=== PATIENT | male | born 1960 | race Caucasian/White ===

== ENCOUNTER 2023-04-30 09:36 | Emergency (ER) | payer OTHER ==
[2023-04-30 10:07] VITALS: BMI 28.8
[2023-04-30 14:01] VITALS: BP 154/74; PULSE 99; RESP 20; TEMP 97.9
== END 2023-04-30 13:30 ==
LOC: JER 09:36
DX: L29.9 Pruritus, unspecified (principal); R21 Rash and other nonspecific skin eruption; B35.4 Tinea corporis; B35.6 Tinea cruris
CPT/HCPCS: 99282-25

== ENCOUNTER 2023-07-16 08:18 | Inpatient (IN) | payer OTHER ==
[2023-07-16 08:40] VITALS: BMI 27.3
[2023-07-16 10:41] LABS: BASO % 0.9 % (0-2.0); EOS % 4.2 % (0-4.5); HEMATOCRIT 29.5 % (35.4-49); LYMPH % 18.3 % (8-40); MCH 31.2 pg (25.7-33.7); MCHC 33.7 g/dl (32.0-35.9); MEAN CELL VOLUME 92.6 fl (80-96); MEAN PLT VOLUME 7.3 fl (7.5-11.1); MONO % 5.8 % (3.8-10.2); NEUT % 70.8 % (42.8-82.8); PLATELET COUNT 128 10^3/uL (134-434); RBC 3.19 M/mm3 (4.00-5.60); RDW 15.7 % (11.9-15.9); WHITE BLOOD COUNT 7.2 K/mm3 (4.0-10.0)
[2023-07-16 10:53] LABS: CHLORIDE 107 mmol/L (98-107); SODIUM 133 mmol/L (136-145)
[2023-07-16 10:55] LABS: CALCIUM 8.8 mg/dL (8.5-10.1)
[2023-07-16 10:56] LABS: ALBUMIN 3.7 g/dl (3.4-5.0); CO2 16 mmol/L (21-32); GLUCOSE,RANDOM 108 mg/dL (74-106)
[2023-07-16 10:59] LABS: SGOT/AST 51 U/L (15-37)
[2023-07-16 11:00] LABS: BILIRUBIN,TOTAL 0.3 mg/dL (0.2-1); TOT PROT 8.2 g/dl (6.4-8.2)
[2023-07-16 11:02] LABS: ALK PHOS 87 U/L (45-117)
[2023-07-16 11:05] LABS: ANION GAP 11 mmol/L (4-13); BLOOD UREA NITROGEN 166.2 mg/dL (7-18); CREATININE 16.5 mg/dL (0.55-1.3); POTASSIUM 9.9 mmol/L (3.5-5.1); SGPT/ALT 12 U/L (13-61)
[2023-07-16] MEDS ORDERED: SODIUM CHLORIDE 250 ML IV PRN ×2 (12:59→19:41)
[2023-07-16] MEDS ORDERED: SEVELAMER CARBONATE 800 MG TAB (FP) ONE (18:42)
[2023-07-16] MEDS: SEVELAMER CARBONATE 800 MG TAB (FP) PO SCH (18:44)
[2023-07-16] MEDS ORDERED: ACETAMINOPHEN 325 MG TABLET (FP) PO PRN (19:00)
[2023-07-16] MEDS ORDERED: levETIRAcetam 500 MG TABLET (FP) PO SCH (22:00)
[2023-07-16] MEDS ORDERED: HEPARIN NA (PORCINE) 5,000 UNITS/ML 1ML VIAL ONE (22:15)
[2023-07-16] MEDS ORDERED: CARVEDILOL 25 MG TABLET (FP) ONE (22:15)
[2023-07-16] MEDS ORDERED: hydrALAZINE HCL 50 MG TABLET (FP) ONE (22:15)
[2023-07-16] MEDS: CARVEDILOL 25 MG TABLET (FP) PO SCH (22:38)
[2023-07-16] MEDS: hydrALAZINE HCL 25 MG TABLET (FP) PO SCH (22:38)
[2023-07-16] MEDS: HEPARIN NA (PORCINE) 5,000 UNITS/ML 1ML VIAL SQ SCH (22:38)
[2023-07-17] MEDS ORDERED: ACETAMINOPHEN 1000 MG/100 ML BAG IVPB ONE (01:20)
[2023-07-17] MEDS ORDERED: ACETAMINOPHEN INJECTION 100 ML IVPB ONE (01:22)
[2023-07-17] MEDS ORDERED: oxyCODONE HCL 5 MG TABLET PO ONE (05:55)
[2023-07-17] MEDS ORDERED: hydrALAZINE HCL 50 MG TABLET (FP) ONE (06:07)
[2023-07-17] MEDS ORDERED: HEPARIN NA (PORCINE) 5,000 UNITS/ML 1ML VIAL ONE (06:08)
[2023-07-17] MEDS: hydrALAZINE HCL 25 MG TABLET (FP) PO SCH ×3 (06:14→21:00)
[2023-07-17] MEDS: HEPARIN NA (PORCINE) 5,000 UNITS/ML 1ML VIAL SQ SCH ×3 (06:14→21:00)
[2023-07-17] MEDS ORDERED: TAMSULOSIN HCL 0.4 MG CAP PO SCH (08:30)
[2023-07-17] MEDS ORDERED: TAMSULOSIN HCL 0.4 MG CAP ONE (08:40)
[2023-07-17] MEDS: SEVELAMER CARBONATE 800 MG TAB (FP) PO SCH ×3 (08:58→17:03)
[2023-07-17] MEDS: CARVEDILOL 25 MG TABLET (FP) PO SCH ×2 (09:50→21:00)
[2023-07-17] MEDS ORDERED: ISOSORBIDE MONONITRATE 60 MG TAB.SR.24H (FP) PO SCH (10:00)
[2023-07-17] MEDS ORDERED: amLODIPine BESYLATE 5 MG TABLET (FP) PO SCH ×2 (10:00)
[2023-07-17] MEDS ORDERED: CITALOPRAM HYDROBROMIDE 20 MG TABLET PO SCH (10:00)
[2023-07-17] MEDS ORDERED: ASPIRIN COATED 81 MG TABLET.EC PO SCH (10:00)
[2023-07-17] MEDS ORDERED: FAMOTIDINE 20 MG TABLET PO SCH (10:00)
[2023-07-17] MEDS ORDERED: ISOSORBIDE MONONITRATE 30 MG TAB.SR.24H (FP) PO SCH (10:17)
[2023-07-17 12:38] LABS: BASO % 0.7 % (0-2.0); EOS % 4.5 % (0-4.5); HEMATOCRIT 25.7 % (35.4-49); HEMOGLOBIN 8.5 GM/dL (11.7-16.9); LYMPH % 18.6 % (8-40); MCH 30.3 pg (25.7-33.7); MCHC 33.1 g/dl (32.0-35.9); MEAN CELL VOLUME 91.6 fl (80-96); MEAN PLT VOLUME 8.2 fl (7.5-11.1); MONO % 11.1 % (3.8-10.2); NEUT % 65.1 % (42.8-82.8); PLATELET COUNT 110 10^3/uL (134-434); RBC 2.81 M/mm3 (4.00-5.60); RDW 15.3 % (11.9-15.9); WHITE BLOOD COUNT 5.8 K/mm3 (4.0-10.0)
[2023-07-17 12:42] LABS: CHLORIDE 109 mmol/L (98-107); POTASSIUM 3.8 mmol/L (3.5-5.1); SODIUM 146 mmol/L (136-145)
[2023-07-17 12:43] LABS: CALCIUM 8.2 mg/dL (8.5-10.1)
[2023-07-17 12:44] LABS: ANION GAP 9 mmol/L (4-13); CO2 28 mmol/L (21-32)
[2023-07-17 12:46] LABS: GLUCOSE,RANDOM 119 mg/dL (74-106)
[2023-07-17 13:24] LABS: BLOOD UREA NITROGEN 77.3 mg/dL (7-18); CREATININE 9.8 mg/dL (0.55-1.3)
[2023-07-17 16:55] VITALS: RESP 18
[2023-07-17] MEDS ORDERED: levETIRAcetam 250 MG TABLET PO ONE (20:35)
[2023-07-17 21:44] VITALS: BP 160/70; PULSE 72; TEMP 98.9
== END 2023-07-17 21:48 | DRG 425 ==
LOC: JER 08:18 → JERBED 12:10 → OBSVTOIN 14:37 → J2W 07-17 08:55
PROVIDERS: ADMIT Internal Medicine; ATTEND Internal Medicine
PROC: 5A1D70Z Performance of Urinary Filtration, Intermittent, Less than 6 Hours Per Day (ICD-10-PCS; principal; 2023-07-16)
DX: E87.70 Fluid overload, unspecified (principal); I69.351 Hemiplegia and hemiparesis following cerebral infarction affecting right dominant side; I13.2 Hypertensive heart and chronic kidney disease with heart failure and with stage 5 chronic kidney disease, or end stage renal disease; E11.22 Type 2 diabetes mellitus with diabetic chronic kidney disease; N18.6 End stage renal disease; I50.9 Heart failure, unspecified; Z99.2 Dependence on renal dialysis; D64.9 Anemia, unspecified; R56.9 Unspecified convulsions; I21.A1 Myocardial infarction type 2; E87.5 Hyperkalemia
CPT/HCPCS: 0241U-QW; 36415; 71045-TC-FY; 80048; 80053; 82550; 82553; 82728; 83036; 83540; 83550; 83880; 84466; 84484; 85025; 86704; 86803; 87340; 87517; 87522; 93005; 93010; 93306-TC; 99285-25; G0378; J1644

== ENCOUNTER 2023-11-11 08:53 | Inpatient (IN) | payer OTHER ==
[2023-11-11 09:13] VITALS: BMI 30.4
[2023-11-11 10:20] LABS: BASO % 0.7 % (0-2.0); EOS % 1.3 % (0-4.5); HEMOGLOBIN 8.6 GM/dL (11.7-16.9); LYMPH % 10.1 % (8-40); MCH 30.2 pg (25.7-33.7); MCHC 33.2 g/dl (32.0-35.9); MEAN CELL VOLUME 91.1 fl (80-96); MEAN PLT VOLUME 8.4 fl (7.5-11.1); MONO % 13.8 % (3.8-10.2); NEUT % 74.1 % (42.8-82.8); PLATELET COUNT 135 10^3/uL (134-434); RBC 2.86 M/mm3 (4.00-5.60); RDW 15.6 % (11.9-15.9); WHITE BLOOD COUNT 10.3 K/mm3 (4.0-10.0)
[2023-11-11 10:24] LABS: INR 1.12 (0.83-1.09)
[2023-11-11 10:39] LABS: CHLORIDE 99 mmol/L (98-107); POTASSIUM 4.6 mmol/L (3.5-5.1); SODIUM 137 mmol/L (136-145)
[2023-11-11 10:44] LABS: CALCIUM 9.9 mg/dL (8.5-10.1); GLUCOSE,RANDOM 92 mg/dL (74-106)
[2023-11-11 10:45] LABS: ALBUMIN 2.7 g/dl (3.4-5.0); ANION GAP 14 mmol/L (4-13); CO2 23 mmol/L (21-32)
[2023-11-11 10:47] LABS: SGOT/AST 8 U/L (15-37)
[2023-11-11 10:48] LABS: SGPT/ALT 8 U/L (13-61); TOT PROT 6.8 g/dl (6.4-8.2)
[2023-11-11 10:49] LABS: ALK PHOS 58 U/L (45-117)
[2023-11-11 10:50] LABS: BLOOD UREA NITROGEN 104.7 mg/dL (7-18); CREATININE 11.1 mg/dL (0.55-1.3)
[2023-11-11] MEDS ORDERED: LACTULOSE 20 GM/30 ML UDC (FOR ORAL USE ONLY) ONE (12:00)
[2023-11-11] MEDS: LACTULOSE 20 GM/30 ML UDC (FOR ORAL USE ONLY) PO ONE (12:19)
[2023-11-11] MEDS ORDERED: SODIUM CHLORIDE 250 ML IV PRN (14:48)
[2023-11-11] MEDS: EPOETIN ALFA-EPBX 4,000 UNIT/ML VIAL IVPUSH ONE (18:41)
[2023-11-12] MEDS: VANCOMYCIN/WATER FOR INJ (PEG) 1,000 MG/200 ML BAG IVPB ONE (07:18)
[2023-11-12] MEDS ORDERED: SODIUM CHLORIDE 250 ML IV PRN (09:15)
[2023-11-12 15:07] LABS: BASO % 0.7 % (0-2.0); EOS % 1.5 % (0-4.5); HEMATOCRIT 25.4 % (35.4-49); HEMOGLOBIN 8.2 GM/dL (11.7-16.9); LYMPH % 11.7 % (8-40); MCH 29.8 pg (25.7-33.7); MCHC 32.3 g/dl (32.0-35.9); MEAN CELL VOLUME 92.1 fl (80-96); MEAN PLT VOLUME 8.1 fl (7.5-11.1); MONO % 13.3 % (3.8-10.2); NEUT % 72.8 % (42.8-82.8); PLATELET COUNT 175 10^3/uL (134-434); RBC 2.75 M/mm3 (4.00-5.60); WHITE BLOOD COUNT 10.1 K/mm3 (4.0-10.0)
[2023-11-12 15:23] LABS: CHLORIDE 103 mmol/L (98-107); SODIUM 143 mmol/L (136-145)
[2023-11-12 15:26] LABS: ALBUMIN 2.5 g/dl (3.4-5.0); ANION GAP 13 mmol/L (4-13); CALCIUM 8.9 mg/dL (8.5-10.1); CO2 27 mmol/L (21-32); GLUCOSE,RANDOM 79 mg/dL (74-106); MAGNESIUM 2.7 mg/dL (1.8-2.4)
[2023-11-12 15:29] LABS: SGOT/AST 6 U/L (15-37); SGPT/ALT 9 U/L (13-61)
[2023-11-12 15:30] LABS: BILIRUBIN,TOTAL 0.7 mg/dL (0.2-1); TOT PROT 6.9 g/dl (6.4-8.2)
[2023-11-12 15:31] LABS: ALK PHOS 56 U/L (45-117)
[2023-11-12 15:41] LABS: BLOOD UREA NITROGEN 58.6 mg/dL (7-18); CREATININE 7.5 mg/dL (0.55-1.3)
[2023-11-12] MEDS: EPOETIN ALFA-EPBX 4,000 UNIT/ML VIAL IVPUSH ONE (16:48)
[2023-11-12] MEDS ORDERED: DOCUSATE SODIUM 100 MG CAPSULE (FP) PO PRN (18:51)
[2023-11-12] MEDS ORDERED: MELATONIN 5 MG TABLETS PO PRN (18:51)
[2023-11-12] MEDS ORDERED: SODIUM PHOSPHATE/NA BIPHOS 133 ML ENEMA RC ONE (18:51)
[2023-11-12] MEDS: levETIRAcetam 250 MG TABLET PO SCH (21:31)
[2023-11-12] MEDS: ATORVASTATIN CA 20 MG TABLET (FP) PO SCH (21:32)
[2023-11-12] MEDS: CARVEDILOL 25 MG TABLET (FP) PO SCH (21:32)
[2023-11-12] MEDS: AMMONIUM LACTATE 12% LOTION 225 GM BOTTLE TP PRN (21:32)
[2023-11-12] MEDS: hydrALAZINE HCL 50 MG TABLET (FP) PO SCH (21:32)
[2023-11-12] MEDS: CLOTRIMAZOLE 1% CREAM TP SCH (21:33)
[2023-11-12] MEDS: SENNOSIDES 8.8 MG/5 ML SYRUP PO SCH (21:33)
[2023-11-13] MEDS: ACETAMINOPHEN 325 MG TABLET (FP) PO PRN (02:20)
[2023-11-13] MEDS: SEVELAMER CARBONATE 800 MG TAB (FP) PO SCH (08:25)
[2023-11-13] MEDS: TAMSULOSIN HCL 0.4 MG CAP PO SCH (08:25)
[2023-11-13] MEDS: CITALOPRAM HYDROBROMIDE 20 MG TABLET PO SCH (09:26)
[2023-11-13] MEDS: amLODIPine BESYLATE 10 MG TABLET (FP) PO SCH (09:26)
[2023-11-13] MEDS: ISOSORBIDE MONONITRATE 30 MG TAB.SR.24H (FP) PO SCH (09:26)
[2023-11-13] MEDS: FAMOTIDINE 10 MG TABLET PO SCH (09:26)
[2023-11-13] MEDS: ASPIRIN COATED 81 MG TABLET.EC PO SCH (09:26)
[2023-11-13] MEDS: VANCOMYCIN/WATER FOR INJ (PEG) 1,000 MG/200 ML BAG IVPB ONE (11:53)
[2023-11-13] MEDS ORDERED: SODIUM CHLORIDE 250 ML IV PRN (15:28)
[2023-11-14] MEDS: DAPTOMYCIN 800 MG in SODIUM CHLORIDE 100 ML IVPB ONE (13:26)
[2023-11-14] MEDS ORDERED: EPOETIN ALFA-EPBX 4,000 UNIT/ML VIAL SQ ONE (15:28)
[2023-11-14] MEDS: hydrOXYzine PAMOATE 25 MG CAPSULE (FP) PO PRN (19:57)
[2023-11-15 10:04] LABS: HEMATOCRIT 20.2 % (35.4-49); MCH 29.7 pg (25.7-33.7); MCHC 32.6 g/dl (32.0-35.9); MEAN CELL VOLUME 91.1 fl (80-96); MEAN PLT VOLUME 7.5 fl (7.5-11.1); PLATELET COUNT 313 10^3/uL (134-434); RBC 2.22 M/mm3 (4.00-5.60); RDW 15.7 % (11.9-15.9); WHITE BLOOD COUNT 12.2 K/mm3 (4.0-10.0)
[2023-11-15 10:12] LABS: HEMOGLOBIN 6.6 GM/dL (11.7-16.9)
[2023-11-15 10:28] LABS: CHLORIDE 96 mmol/L (98-107); POTASSIUM 4.1 mmol/L (3.5-5.1); SODIUM 137 mmol/L (136-145)
[2023-11-15 10:29] LABS: ANION GAP 16 mmol/L (4-13); CALCIUM 9.3 mg/dL (8.5-10.1); CO2 25 mmol/L (21-32)
[2023-11-15 10:30] LABS: BLOOD UREA NITROGEN 64.1 mg/dL (7-18); GLUCOSE,RANDOM 120 mg/dL (74-106)
[2023-11-15 11:03] LABS: CREATININE 8.3 mg/dL (0.55-1.3)
[2023-11-15 11:21] LABS: ANISOCYTOSIS 0; HELMET CELLS 0; HOWELL-JOLLY BODIES 0; MACROCYTOSIS 0; OVALOCYTE 0; ROULEAU 0; SICKELED CELLS 0; TARGET CELLS 0; TEAR DROP CELLS 0; TOXIC GRANULATION 0
[2023-11-16] MEDS: ARTIFICIAL TEARS OPHTHALMIC DROPS OU PRN (00:21)
[2023-11-16 11:07] VITALS: RESP 18
[2023-11-16 11:25] LABS: BASO % 0.5 % (0-2.0); EOS % 3.8 % (0-4.5); HEMATOCRIT 25.6 % (35.4-49); HEMOGLOBIN 8.3 GM/dL (11.7-16.9); LYMPH % 10.1 % (8-40); MCH 29.1 pg (25.7-33.7); MCHC 32.4 g/dl (32.0-35.9); MEAN CELL VOLUME 89.9 fl (80-96); MEAN PLT VOLUME 7.4 fl (7.5-11.1); MONO % 6.1 % (3.8-10.2); NEUT % 79.5 % (42.8-82.8); PLATELET COUNT 312 10^3/uL (134-434); RBC 2.85 M/mm3 (4.00-5.60); RDW 15.7 % (11.9-15.9); WHITE BLOOD COUNT 11.7 K/mm3 (4.0-10.0)
[2023-11-16 11:52] LABS: CHLORIDE 96 mmol/L (98-107); POTASSIUM 4.2 mmol/L (3.5-5.1); SODIUM 134 mmol/L (136-145)
[2023-11-16 11:54] LABS: ALBUMIN 2.4 g/dl (3.4-5.0)
[2023-11-16 11:55] LABS: GLUCOSE,RANDOM 101 mg/dL (74-106)
[2023-11-16 11:57] LABS: SGPT/ALT 7 U/L (13-61)
[2023-11-16 11:58] LABS: SGOT/AST 6 U/L (15-37)
[2023-11-16 11:59] LABS: BILIRUBIN,TOTAL 0.5 mg/dL (0.2-1); TOT PROT 6.6 g/dl (6.4-8.2)
[2023-11-16 12:00] LABS: ALK PHOS 62 U/L (45-117); CALCIUM 9.3 mg/dL (8.5-10.1)
[2023-11-16 12:01] LABS: ANION GAP 13 mmol/L (4-13); BLOOD UREA NITROGEN 75.4 mg/dL (7-18); CO2 24 mmol/L (21-32)
[2023-11-16] MEDS: EPOETIN ALFA-EPBX 2,000 UNIT, EPOETIN ALFA-EPBX 3,000 UNIT IVPUSH ONE (12:15)
[2023-11-16] MEDS: DAPTOMYCIN 800 MG in SODIUM CHLORIDE 100 ML IVPB SCH (14:38)
[2023-11-16] MEDS: EPOETIN ALFA-EPBX 4,000 UNIT/ML VIAL SQ ONE (18:31)
[2023-11-17 06:08] VITALS: BP 125/68; PULSE 73; TEMP 99.4
== END 2023-11-17 14:47 | DRG 425 ==
LOC: JER 08:53 → JERBED 12:13 → J6S 11-12 03:47
PROVIDERS: ADMIT Internal Medicine; ATTEND Internal Medicine
PROC: 30233N1 Transfusion of Nonautologous Red Blood Cells into Peripheral Vein, Percutaneous Approach (ICD-10-PCS; principal; 2023-11-15)
PROC: 5A1D70Z Performance of Urinary Filtration, Intermittent, Less than 6 Hours Per Day (ICD-10-PCS; 2023-11-16)
DX: E87.70 Fluid overload, unspecified (principal); G93.41 Metabolic encephalopathy; I13.2 Hypertensive heart and chronic kidney disease with heart failure and with stage 5 chronic kidney disease, or end stage renal disease; R78.81 Bacteremia; I69.351 Hemiplegia and hemiparesis following cerebral infarction affecting right dominant side; I50.32 Chronic diastolic (congestive) heart failure; N18.6 End stage renal disease; B95.62 Methicillin resistant Staphylococcus aureus infection as the cause of diseases classified elsewhere; D63.1 Anemia in chronic kidney disease; L23.1 Allergic contact dermatitis due to adhesives; Z99.2 Dependence on renal dialysis
CPT/HCPCS: 0241U-QW; 36415; 36430; 71045-TC-FY; 73060-TC-LT-FY; 74018-TC-FY; 76705-TC; 76882-TC-RT-FY; 80048; 80053; 80177; 82140; 82550; 83735; 84443; 84484; 85025; 85610; 85730; 86803; 86850; 86900; 86901; 86922; 87040; 87186; 87340; 87522; 93005; 93010; 93306-TC; 99285-25; G0480; J0878; P9058; Q5106

== ENCOUNTER 2023-12-08 13:05 | Inpatient (IN) | payer BC, OTHER ==
[2023-12-08 14:22] LABS: BASO % 0.8 % (0-2.0); EOS % 6.9 % (0-4.5); HEMATOCRIT 30.7 % (35.4-49); HEMOGLOBIN 10.1 GM/dL (11.7-16.9); LYMPH % 11.6 % (8-40); MCH 29.9 pg (25.7-33.7); MCHC 32.9 g/dl (32.0-35.9); MEAN CELL VOLUME 90.8 fl (80-96); MEAN PLT VOLUME 7.2 fl (7.5-11.1); MONO % 8.5 % (3.8-10.2); NEUT % 72.2 % (42.8-82.8); PLATELET COUNT 246 10^3/uL (134-434); RBC 3.38 M/mm3 (4.00-5.60); RDW 16.3 % (11.9-15.9); WHITE BLOOD COUNT 7.5 K/mm3 (4.0-10.0)
[2023-12-08 14:28] LABS: INR 1.22 (0.83-1.09); PROTHROMBIN TIME (PATIENT) 14.1 SEC (9.7-13.0)
[2023-12-08 14:31] LABS: ACTIVATED PTT 29.7 SECONDS (25.2-36.5)
[2023-12-08 14:39] LABS: POTASSIUM 3.8 mmol/L (3.5-5.1)
[2023-12-08 14:41] LABS: CALCIUM 9.9 mg/dL (8.5-10.1)
[2023-12-08 14:42] LABS: BLOOD UREA NITROGEN 19.4 mg/dL (7-18); MAGNESIUM 2.3 mg/dL (1.8-2.4)
[2023-12-08 14:45] LABS: PHOSPHOROUS 2.9 mg/dL (2.5-4.9)
[2023-12-08 14:46] LABS: TOT PROT 7.8 g/dl (6.4-8.2)
[2023-12-08 14:47] LABS: BILIRUBIN,TOTAL 0.4 mg/dL (0.2-1)
[2023-12-08] MEDS ORDERED: diphenhydrAMINE HCL 25 MG CAPSULE (FP) PO ONE ×3 (16:50→21:25)
[2023-12-08] MEDS: diphenhydrAMINE HCL 25 MG CAPSULE (FP) PO ONE ×2 (17:00→21:29)
[2023-12-08] MEDS ORDERED: CEFTRIAXONE 1 GM/50 ML BAG ONE (18:13)
[2023-12-08] MEDS: DAPTOMYCIN 800 MG in SODIUM CHLORIDE 50 ML IVPB ONE (18:29)
[2023-12-08] MEDS ORDERED: MAGNESIUM HYDROX 2400MG/30ML ORAL SUSPENSION 30 ML CUP PO PRN (19:48)
[2023-12-08] MEDS ORDERED: BISACODYL 10 MG SUPP.RECT PR PRN (19:48)
[2023-12-08] MEDS ORDERED: hydrOXYzine PAMOATE 25 MG CAPSULE (FP) PO ONE (21:26)
[2023-12-08] MEDS: hydrOXYzine PAMOATE 25 MG CAPSULE (FP) PO PRN (21:29)
[2023-12-08] MEDS ORDERED: ATORVASTATIN CA 20 MG TABLET (FP) ONE (22:05)
[2023-12-08] MEDS ORDERED: CARVEDILOL 25 MG TABLET (FP) ONE (22:06)
[2023-12-08] MEDS ORDERED: MELATONIN 5 MG TABLETS ONE (22:06)
[2023-12-08] MEDS ORDERED: SENNOSIDES 8.6MG TABLET (FP) PO ONE (22:06)
[2023-12-08] MEDS ORDERED: levETIRAcetam 500 MG TABLET (FP) PO ONE (22:09)
[2023-12-08] MEDS ORDERED: hydrALAZINE HCL 50 MG TABLET (FP) ONE (22:10)
[2023-12-08] MEDS: hydrALAZINE HCL 50 MG TABLET (FP) PO SCH (22:19)
[2023-12-08] MEDS: levETIRAcetam 250 MG TABLET PO SCH (22:19)
[2023-12-08] MEDS: AMMONIUM LACTATE 12% CREAM 140 GM TUBE TP SCH (22:19)
[2023-12-08] MEDS: CARVEDILOL 25 MG TABLET (FP) PO SCH (22:19)
[2023-12-08] MEDS: ATORVASTATIN CA 20 MG TABLET (FP) PO SCH (22:20)
[2023-12-08] MEDS: MELATONIN 5 MG TABLETS PO SCH (22:20)
[2023-12-08] MEDS: SENNOSIDES 8.6MG TABLET (FP) PO SCH (22:20)
[2023-12-08] MEDS: oxyCODONE HCL 5 MG TABLET PO PRN (22:21)
[2023-12-08] MEDS ORDERED: oxyCODONE HCL 5 MG TABLET ONE (22:21)
[2023-12-09] MEDS ORDERED: hydrALAZINE HCL 50 MG TABLET (FP) ONE (05:39)
[2023-12-09] MEDS ORDERED: SEVELAMER CARBONATE 800 MG TAB (FP) ONE (09:08)
[2023-12-09] MEDS ORDERED: TAMSULOSIN HCL 0.4 MG CAP ONE ×2 (09:08→09:09)
[2023-12-09] MEDS: SEVELAMER CARBONATE 800 MG TAB (FP) PO SCH (09:11)
[2023-12-09] MEDS: TAMSULOSIN HCL 0.4 MG CAP PO SCH (09:11)
[2023-12-09] MEDS ORDERED: hydrOXYzine PAMOATE 25 MG CAPSULE (FP) PO ONE (09:12)
[2023-12-09 09:22] LABS: BASO % 0.9 % (0-2.0); EOS % 8.6 % (0-4.5); HEMOGLOBIN 8.9 GM/dL (11.7-16.9); LYMPH % 23.2 % (8-40); MCHC 32.8 g/dl (32.0-35.9); MEAN CELL VOLUME 91.6 fl (80-96); MEAN PLT VOLUME 6.6 fl (7.5-11.1); MONO % 11.1 % (3.8-10.2); NEUT % 56.2 % (42.8-82.8); PLATELET COUNT 195 10^3/uL (134-434); RBC 2.95 M/mm3 (4.00-5.60); RDW 15.6 % (11.9-15.9); WHITE BLOOD COUNT 6.1 K/mm3 (4.0-10.0)
[2023-12-09 09:43] LABS: CHLORIDE 104 mmol/L (98-107); POTASSIUM 3.6 mmol/L (3.5-5.1); SODIUM 137 mmol/L (136-145)
[2023-12-09 09:55] LABS: ANION GAP 6 mmol/L (4-13); CO2 27 mmol/L (21-32); GLUCOSE,RANDOM 77 mg/dL (74-106)
[2023-12-09 09:56] LABS: BLOOD UREA NITROGEN 32.6 mg/dL (7-18); CALCIUM 10.5 mg/dL (8.5-10.1)
[2023-12-09 09:59] LABS: CREATININE 5.7 mg/dL (0.55-1.3)
[2023-12-09] MEDS ORDERED: amLODIPine BESYLATE 10 MG TABLET (FP) ONE (10:48)
[2023-12-09] MEDS ORDERED: ISOSORBIDE MONONITRATE 60 MG TAB.SR.24H (FP) PO ONE (10:48)
[2023-12-09] MEDS ORDERED: LORATADINE 10 MG TABLET ONE (10:49)
[2023-12-09] MEDS ORDERED: CARVEDILOL 25 MG TABLET (FP) ONE (10:49)
[2023-12-09] MEDS ORDERED: ASPIRIN 81 MG CHEWABLE TABLETS ONE (10:49)
[2023-12-09] MEDS ORDERED: CITALOPRAM HYDROBROMIDE 10 MG TABLET ONE (10:49)
[2023-12-09] MEDS: ASPIRIN 81 MG CHEWABLE TABLETS PO SCH (10:57)
[2023-12-09] MEDS: amLODIPine BESYLATE 10 MG TABLET (FP) PO SCH (10:57)
[2023-12-09] MEDS: CITALOPRAM HYDROBROMIDE 20 MG TABLET PO SCH (10:57)
[2023-12-09] MEDS: ISOSORBIDE MONONITRATE 60 MG TAB.SR.24H (FP) PO SCH (10:57)
[2023-12-09] MEDS: LORATADINE 10 MG TABLET PO SCH (10:57)
[2023-12-09] MEDS ORDERED: CEFTAROLINE FOSAMIL ACETATE IVPB SCH (11:00)
[2023-12-09] MEDS ORDERED: WATER IVPB SCH (11:00)
[2023-12-09] MEDS ORDERED: DEXTROSE 5% IVPB SCH (11:00)
[2023-12-09] MEDS: DEXTROSE 5% IVPB SCH (15:23)
[2023-12-09] MEDS: CEFTAROLINE FOSAMIL ACETATE IVPB SCH (15:23)
[2023-12-09] MEDS: WATER IVPB SCH (15:23)
[2023-12-09] MEDS ORDERED: SODIUM CHLORIDE 250 ML IV PRN (17:37)
[2023-12-09] MEDS ORDERED: IOHEXOL (OMNIPAQUE PO) 12 MG/ML - 500 ML BOTTLE PO ONE (18:43)
[2023-12-09] MEDS: diphenhydrAMINE HCL 25 MG CAPSULE (FP) PO ONE (22:03)
[2023-12-09] MEDS: AMMONIUM LACTATE 12% LOTION 225 GM BOTTLE TP SCH (22:06)
[2023-12-09] MEDS: ARTIFICIAL TEARS OPHTHALMIC DROPS OU PRN (22:08)
[2023-12-10] MEDS ORDERED: IOHEXOL (OMNIPAQUE PO) 12 MG/ML - 500 ML BOTTLE PO ONE (08:37)
[2023-12-10] MEDS: EPOETIN ALFA-EPBX 4,000 UNIT/ML VIAL IVPUSH ONE (12:00)
[2023-12-10] MEDS: DAPTOMYCIN 700 MG in SODIUM CHLORIDE 50 ML IVPB ONE (14:32)
[2023-12-10] MEDS: FAMOTIDINE 20 MG TABLET PO SCH (20:50)
[2023-12-11] MEDS: diphenhydrAMINE HCL 25 MG CAPSULE (FP) PO ONE (11:27)
[2023-12-11] MEDS: VANCOMYCIN/WATER FOR INJ (PEG) 1,000 MG/200 ML BAG IVPB ONE (13:21)
[2023-12-11] MEDS ORDERED: SODIUM CHLORIDE 250 ML IV PRN (18:11)
[2023-12-11] MEDS: hydrOXYzine HCL 10 MG/5 ML LIQUID BULK BOTTLE PO PRN (22:40)
[2023-12-12] MEDS ORDERED: SODIUM CHLORIDE 250 ML IV PRN (10:16)
[2023-12-12] MEDS: EPOETIN ALFA-EPBX 4,000 UNIT/ML VIAL IVPUSH ONE (11:29)
[2023-12-12] MEDS: VANCOMYCIN/WATER FOR INJ (PEG) 1,000 MG/200 ML BAG IVPB ONE (15:30)
[2023-12-13] MEDS: oxyCODONE HCL 5 MG TABLET PO PRN (21:34)
[2023-12-14 07:56] LABS: EOS % 9.4 % (0-4.5); HEMATOCRIT 23.4 % (35.4-49); HEMOGLOBIN 7.8 GM/dL (11.7-16.9); LYMPH % 22.9 % (8-40); MCH 30.2 pg (25.7-33.7); MCHC 33.1 g/dl (32.0-35.9); MEAN CELL VOLUME 91.1 fl (80-96); MEAN PLT VOLUME 7.2 fl (7.5-11.1); MONO % 7.5 % (3.8-10.2); NEUT % 59.2 % (42.8-82.8); PLATELET COUNT 248 10^3/uL (134-434); RBC 2.57 M/mm3 (4.00-5.60); WHITE BLOOD COUNT 7.1 K/mm3 (4.0-10.0)
[2023-12-14 08:40] LABS: POTASSIUM 4.3 mmol/L (3.5-5.1)
[2023-12-14 08:42] LABS: ALBUMIN 3.1 g/dl (3.4-5.0); BLOOD UREA NITROGEN 39.7 mg/dL (7-18); CALCIUM 10.4 mg/dL (8.5-10.1)
[2023-12-14 08:47] LABS: BILIRUBIN,TOTAL 0.4 mg/dL (0.2-1); TOT PROT 7.3 g/dl (6.4-8.2)
[2023-12-14 09:08] LABS: CREATININE 7.4 mg/dL (0.55-1.3)
[2023-12-15] MEDS ORDERED: SODIUM CHLORIDE 250 ML IV PRN (12:01)
[2023-12-15] MEDS: EPOETIN ALFA-EPBX 10,000 UNIT/ML VIAL IVPUSH ONE (15:15)
[2023-12-15 22:45] VITALS: BMI 27.1
[2023-12-16] MEDS: EPOETIN ALFA-EPBX 10,000 UNIT/ML VIAL IVPUSH ONE (11:11)
[2023-12-16] MEDS: VANCOMYCIN/WATER FOR INJ (PEG) 1,000 MG/200 ML BAG IVPB ONE (18:02)
[2023-12-16] MEDS: oxyCODONE HCL 5 MG TABLET PO ONE (22:41)
[2023-12-17] MEDS ORDERED: SODIUM CHLORIDE 250 ML IV PRN (17:32)
[2023-12-18] MEDS: EPOETIN ALFA-EPBX 10,000 UNIT/ML VIAL IVPUSH ONE (09:00)
[2023-12-18] MEDS: predniSONE 20 MG TABLET (UD) PO SCH (14:15)
[2023-12-18] MEDS ORDERED: FENTANYL CITRATE/PF 50 MCG/ML VIAL ONE (17:03)
[2023-12-18] MEDS: FENTANYL CITRATE/PF 50 MCG/ML VIAL IVPUSH ONE (17:05)
[2023-12-19] MEDS: VANCOMYCIN/WATER FOR INJ (PEG) 1,000 MG/200 ML BAG IVPB ONE (11:15)
[2023-12-19 14:24] VITALS: RESP 18
[2023-12-19] MEDS: LORazepam 1 MG TABLET PO ONE (16:27)
[2023-12-19 17:03] LABS: BASO % 0.3 % (0-2.0); HEMOGLOBIN 7.9 GM/dL (11.7-16.9); LYMPH % 9.7 % (8-40); MCH 29.7 pg (25.7-33.7); MCHC 32.9 g/dl (32.0-35.9); MEAN CELL VOLUME 90.2 fl (80-96); MEAN PLT VOLUME 7.5 fl (7.5-11.1); MONO % 3.1 % (3.8-10.2); NEUT % 86.9 % (42.8-82.8); PLATELET COUNT 213 10^3/uL (134-434); RBC 2.66 M/mm3 (4.00-5.60); RDW 16.1 % (11.9-15.9); WHITE BLOOD COUNT 7.1 K/mm3 (4.0-10.0)
[2023-12-19] MEDS: EPOETIN ALFA-EPBX 10,000 UNIT/ML VIAL IVPUSH ONE (17:17)
[2023-12-19 18:03] LABS: CHLORIDE 95 mmol/L (98-107); POTASSIUM 4.8 mmol/L (3.5-5.1); SODIUM 132 mmol/L (136-145)
[2023-12-19 18:05] LABS: ALBUMIN 3.1 g/dl (3.4-5.0); ANION GAP 11 mmol/L (4-13); CO2 26 mmol/L (21-32); GLUCOSE,RANDOM 157 mg/dL (74-106)
[2023-12-19 18:09] LABS: SGOT/AST 9 U/L (15-37); SGPT/ALT 9 U/L (13-61)
[2023-12-19 18:10] LABS: BILIRUBIN,TOTAL 0.3 mg/dL (0.2-1)
[2023-12-19 18:12] LABS: ALK PHOS 63 U/L (45-117)
[2023-12-19 18:22] LABS: CREATININE 9.3 mg/dL (0.55-1.3)
[2023-12-19] MEDS: oxyCODONE HCL 5 MG TABLET PO ONE (23:00)
[2023-12-20 15:00] VITALS: BP 121/92; PULSE 68; TEMP 97.6
== END 2023-12-20 18:06 | DRG 871 ==
LOC: JER 13:05 → JERBED 15:55 → J6S 12-09 14:44 → OBSVTOIN 12-10 16:26 → J6S 12-13 13:01
PROVIDERS: ADMIT Internal Medicine; ATTEND Internal Medicine
PROC: 5A1D70Z Performance of Urinary Filtration, Intermittent, Less than 6 Hours Per Day (ICD-10-PCS; 2023-12-10)
PROC: 5A1D70Z Performance of Urinary Filtration, Intermittent, Less than 6 Hours Per Day (ICD-10-PCS; 2023-12-12)
PROC: 5A1D70Z Performance of Urinary Filtration, Intermittent, Less than 6 Hours Per Day (ICD-10-PCS; 2023-12-16)
PROC: 02HV33Z Insertion of Infusion Device into Superior Vena Cava, Percutaneous Approach (ICD-10-PCS; principal; 2023-12-18)
PROC: B518ZZA Fluoroscopy of Superior Vena Cava, Guidance (ICD-10-PCS; 2023-12-18)
PROC: 0JH63XZ Insertion of Tunneled Vascular Access Device into Chest Subcutaneous Tissue and Fascia, Percutaneous Approach (ICD-10-PCS; 2023-12-18)
PROC: 05HP33Z Insertion of Infusion Device into Right External Jugular Vein, Percutaneous Approach (ICD-10-PCS; 2023-12-18)
PROC: B513ZZA Fluoroscopy of Right Jugular Veins, Guidance (ICD-10-PCS; 2023-12-18)
PROC: 5A1D70Z Performance of Urinary Filtration, Intermittent, Less than 6 Hours Per Day (ICD-10-PCS; 2023-12-19)
DX: R78.81 Bacteremia (principal); N18.6 End stage renal disease; I69.351 Hemiplegia and hemiparesis following cerebral infarction affecting right dominant side; I13.2 Hypertensive heart and chronic kidney disease with heart failure and with stage 5 chronic kidney disease, or end stage renal disease; B95.62 Methicillin resistant Staphylococcus aureus infection as the cause of diseases classified elsewhere; N40.0 Benign prostatic hyperplasia without lower urinary tract symptoms; F41.8 Other specified anxiety disorders; F31.9 Bipolar disorder, unspecified; E78.5 Hyperlipidemia, unspecified; L29.8 Other pruritus; D72.19 Other eosinophilia; I48.0 Paroxysmal atrial fibrillation; I25.10 Atherosclerotic heart disease of native coronary artery without angina pectoris; K59.00 Constipation, unspecified; E66.9 Obesity, unspecified; Z68.29 Body mass index [BMI] 29.0-29.9, adult; L30.9 Dermatitis, unspecified; E11.22 Type 2 diabetes mellitus with diabetic chronic kidney disease; I50.9 Heart failure, unspecified; Z99.2 Dependence on renal dialysis
CPT/HCPCS: 36415; 36558; 36569; 71045-TC-FY; 71270-TC; 74178-TC; 76882-TC-RT-FY; 78804-TC; 80048; 80053; 82550; 82553; 83605; 83735; 84100; 85025; 85610; 85730; 86140; 86682; 86704; 86803; 87040; 87186; 87340; 87517; 87522; 93005; 93010; 93306-TC; 99285-25; A9571; G0378; G0480; J0878; Q5106; Q9967

== ENCOUNTER 2024-03-04 08:24 | Emergency (ER) | payer BC, OTHER ==
[2024-03-04 08:36] VITALS: BMI 28.1
[2024-03-04 11:42] VITALS: BP 115/41; PULSE 67; RESP 17; TEMP 98.2
== END 2024-03-04 12:29 | disposition home or self-care (01) ==
LOC: JER 08:24
DX: Z45.2 Encounter for adjustment and management of vascular access device (principal)
CPT/HCPCS: 36589; 99283-25

== ENCOUNTER 2024-03-10 02:48 | Emergency (ER) | payer BC, OTHER ==
[2024-03-10 03:05] VITALS: BMI 36.0
[2024-03-10 03:53] LABS: BASO % 1.1 % (0-2.0); HEMATOCRIT 32.1 % (35.4-49); HEMOGLOBIN 10.6 GM/dL (11.7-16.9); LYMPH % 29.3 % (8-40); MCH 29.8 pg (25.7-33.7); MCHC 32.9 g/dl (32.0-35.9); MEAN CELL VOLUME 90.5 fl (80-96); MEAN PLT VOLUME 7.9 fl (7.5-11.1); MONO % 8.1 % (3.8-10.2); NEUT % 55.5 % (42.8-82.8); PLATELET COUNT 157 10^3/uL (134-434); RBC 3.54 M/mm3 (4.00-5.60); RDW 14.2 % (11.9-15.9); WHITE BLOOD COUNT 6.3 K/mm3 (4.0-10.0)
[2024-03-10 04:06] LABS: INR 0.96 (0.83-1.09); PROTHROMBIN TIME (PATIENT) 10.9 SEC (9.7-13.0)
[2024-03-10 04:09] LABS: ACTIVATED PTT 28.7 SECONDS (25.2-36.5)
[2024-03-10 04:23] LABS: MAGNESIUM 2.4 mg/dL (1.8-2.4)
[2024-03-10 04:26] LABS: PHOSPHOROUS 5.8 mg/dL (2.5-4.9)
[2024-03-10 05:42] LABS: POTASSIUM 4.6 mmol/L (3.5-5.1)
[2024-03-10 05:44] LABS: ALBUMIN 3.6 g/dl (3.4-5.0); BLOOD UREA NITROGEN 60.8 mg/dL (7-18); CALCIUM 9.7 mg/dL (8.5-10.1)
[2024-03-10 05:49] LABS: BILIRUBIN,TOTAL 0.3 mg/dL (0.2-1); TOT PROT 7.3 g/dl (6.4-8.2)
[2024-03-10 09:21] VITALS: BP 115/66; PULSE 83; RESP 18; TEMP 98.4
== END 2024-03-10 10:58 ==
LOC: JER 02:48
DX: D64.9 Anemia, unspecified (principal); R79.9 Abnormal finding of blood chemistry, unspecified
CPT/HCPCS: 36415; 80053; 83735; 84100; 85025; 85610; 85730; 86850; 86900; 86901; 99283-25

== ENCOUNTER 2024-04-16 11:59 | Inpatient (IN) | payer BC, OTHER ==
[2024-04-16 13:22] LABS: BASO % 0.8 % (0-2.0); EOS % 2.6 % (0-4.5); HEMATOCRIT 26.7 % (35.4-49); HEMOGLOBIN 9.1 GM/dL (11.7-16.9); LYMPH % 9.8 % (8-40); MCH 30.7 pg (25.7-33.7); MEAN CELL VOLUME 90.4 fl (80-96); MONO % 13.7 % (3.8-10.2); NEUT % 73.1 % (42.8-82.8); PLATELET COUNT 203 10^3/uL (134-434); RBC 2.96 M/mm3 (4.00-5.60); RDW 14.8 % (11.9-15.9); WHITE BLOOD COUNT 8.4 K/mm3 (4.0-10.0)
[2024-04-16 13:25] LABS: CALCIUM 9.4 mg/dL (8.5-10.1)
[2024-04-16 13:26] LABS: ALBUMIN 3.3 g/dl (3.4-5.0); BLOOD UREA NITROGEN 32.8 mg/dL (7-18); MAGNESIUM 2.2 mg/dL (1.8-2.4)
[2024-04-16 13:29] LABS: CREATININE 5.1 mg/dL (0.55-1.3)
[2024-04-16 13:31] LABS: BILIRUBIN,TOTAL 0.6 mg/dL (0.2-1); TOT PROT 7.9 g/dl (6.4-8.2)
[2024-04-16 13:40] LABS: EPI CELLS 7 /uL (0-25.1); HYALINE CASTS 1 /uL (0-3.1); PH,URINE 5.5 (5.0-8.0); URINE APPEARANCE CLOUDY; URINE BACTERIA 186 /uL (0-1359); URINE BILIRUBIN NEGATIVE (NEGATIVE); URINE COLOR YELLOW; URINE GLUCOSE (UA) NEGATIVE (NEGATIVE); URINE KETONE NEGATIVE (NEGATIVE); URINE LEUK ESTERASE 3+ (NEGATIVE); URINE NITRITE NEGATIVE (NEGATIVE); URINE PROTEIN 2+ (NEGATIVE); URINE RBC 46 /uL (0-23.9); URINE UROBILINOGEN 0.2 mg/dL (0.2-1.0); URINE WBC 1020 /uL (0-25.8)
[2024-04-16 14:13] LABS: YEAST NONE SEEN (NEGATIVE)
[2024-04-16] MEDS ORDERED: levETIRAcetam 500 MG/5 ML INJECTION VIAL IVPB ONE (18:52)
[2024-04-16] MEDS: levETIRAcetam 500 MG/5 ML INJECTION VIAL IVPB SCH (19:04)
[2024-04-16] MEDS: AMINO ACIDS 4.25%/D5W 1,000 ML IV SCH (20:10)
[2024-04-16] MEDS ORDERED: ACETAMINOPHEN INJECTION 100 ML IVPB ONE (23:43)
[2024-04-16] MEDS: ACETAMINOPHEN 1000 MG/100 ML BAG IVPB ONE (23:55)
[2024-04-17] MEDS: CEFTRIAXONE 1 GM in DEXTROSE 5%-WATER - 50 ML IVPB SCH (14:05)
[2024-04-18] MEDS ORDERED: SODIUM CHLORIDE 250 ML IV PRN (00:25)
[2024-04-18 09:27] LABS: CHLORIDE 96 mmol/L (98-107); SODIUM 134 mmol/L (136-145)
[2024-04-18 09:29] LABS: ANION GAP 17 mmol/L (4-13); CALCIUM 9.6 mg/dL (8.5-10.1); CO2 21 mmol/L (21-32)
[2024-04-18 09:30] LABS: GLUCOSE,RANDOM 78 mg/dL (74-106)
[2024-04-18 09:32] LABS: SGPT/ALT 11 U/L (13-61)
[2024-04-18 09:33] LABS: SGOT/AST 11 U/L (15-37)
[2024-04-18 09:34] LABS: ALK PHOS 82 U/L (45-117); BILIRUBIN,TOTAL 0.4 mg/dL (0.2-1); TOT PROT 7.1 g/dl (6.4-8.2)
[2024-04-18 09:36] LABS: BLOOD UREA NITROGEN 69.7 mg/dL (7-18); CREATININE 8.8 mg/dL (0.55-1.3)
[2024-04-18 15:54] LABS: BASO % 0.6 % (0-2.0); EOS % 4.9 % (0-4.5); HEMATOCRIT 25.5 % (35.4-49); HEMOGLOBIN 8.5 GM/dL (11.7-16.9); LYMPH % 15.3 % (8-40); MCHC 33.4 g/dl (32.0-35.9); MEAN CELL VOLUME 89.7 fl (80-96); MEAN PLT VOLUME 6.9 fl (7.5-11.1); MONO % 13.4 % (3.8-10.2); NEUT % 65.8 % (42.8-82.8); PLATELET COUNT 213 10^3/uL (134-434); RBC 2.84 M/mm3 (4.00-5.60); RDW 14.4 % (11.9-15.9); WHITE BLOOD COUNT 7.1 K/mm3 (4.0-10.0)
[2024-04-18] MEDS: ACETAMINOPHEN 1000 MG/100 ML BAG IVPB ONE (15:55)
[2024-04-19] MEDS: MELATONIN 5 MG TABLETS PO ONE (03:02)
[2024-04-19 07:10] VITALS: RESP 18
[2024-04-19] MEDS: TAMSULOSIN HCL 0.4 MG CAP PO SCH (09:36)
[2024-04-19] MEDS: ESCITALOPRAM OXALATE 20 MG TABLET PO SCH (09:36)
[2024-04-19] MEDS: PANTOPRAZOLE 20 MG TABLET PO SCH (09:36)
[2024-04-19] MEDS: ASPIRIN 81 MG CHEWABLE TABLETS PO SCH (09:36)
[2024-04-19] MEDS ORDERED: SODIUM CHLORIDE 250 ML IV PRN (13:09)
[2024-04-19 14:56] VITALS: BP 167/44; PULSE 66; TEMP 97.5
[2024-04-19] MEDS ORDERED: ATORVASTATIN CA 20 MG TABLET (FP) PO SCH (22:00)
[2024-04-20] MEDS ORDERED: EPOETIN ALFA-EPBX 10,000 UNIT/ML VIAL SQ ONE (13:09)
== END 2024-04-19 17:26 | DRG 947 ==
LOC: JER 11:59 → JERBED 15:22 → J7W 20:54 → J5S 04-18 19:06
PROVIDERS: ADMIT Internal Medicine; ATTEND Internal Medicine
PROC: 5A1D70Z Performance of Urinary Filtration, Intermittent, Less than 6 Hours Per Day (ICD-10-PCS; principal; 2024-04-18)
DX: R41.82 Altered mental status, unspecified (principal); N18.6 End stage renal disease; I69.351 Hemiplegia and hemiparesis following cerebral infarction affecting right dominant side; I13.2 Hypertensive heart and chronic kidney disease with heart failure and with stage 5 chronic kidney disease, or end stage renal disease; I50.22 Chronic systolic (congestive) heart failure; F41.8 Other specified anxiety disorders; F31.9 Bipolar disorder, unspecified; I25.10 Atherosclerotic heart disease of native coronary artery without angina pectoris; G40.909 Epilepsy, unspecified, not intractable, without status epilepticus; D63.1 Anemia in chronic kidney disease; E78.5 Hyperlipidemia, unspecified; N40.0 Benign prostatic hyperplasia without lower urinary tract symptoms; E11.22 Type 2 diabetes mellitus with diabetic chronic kidney disease; Z99.2 Dependence on renal dialysis
CPT/HCPCS: 36415; 70450-TC; 70551-TC; 71045-TC-FY; 80053; 81003; 82962; 83605; 83735; 84484; 85025; 85730; 86705; 86803; 87086; 87186; 87340; 87522; 93005; 93010; 99285-25; J0131

== ENCOUNTER 2024-07-13 20:21 | Inpatient (IN) | payer BC, OTHER ==
[2024-07-13] MEDS ORDERED: ACETAMINOPHEN 325 MG TABLET (FP) ONE (22:07)
[2024-07-13] MEDS: ACETAMINOPHEN 325 MG TABLET (FP) PO ONE (22:19)
[2024-07-13] MEDS ORDERED: DEXAMETHASONE SOD PHOSPHATE 10 MG/1 ML VIAL ONE (22:43)
[2024-07-13] MEDS: DEXAMETHASONE SOD PHOSPHATE 20 MG/5 ML VIAL IVPB ONE (23:14)
[2024-07-13 23:17] LABS: VENOUS BASE EXCESS -4.9 mmol/L (-2-2); VENOUS O2 SATURATION 79.2 % (70-80); VENOUS PCO2 47.7 mmHg (38-52); VENOUS PH 7.283 (7.310-7.410)
[2024-07-13 23:20] LABS: BASO % 0.3 % (0-2.0); EOS % 2.6 % (0-4.5); HEMATOCRIT 32.4 % (35.4-49); HEMOGLOBIN 10.6 GM/dL (11.7-16.9); LYMPH % 13.9 % (8-40); MCH 29.8 pg (25.7-33.7); MCHC 32.7 g/dl (32.0-35.9); MEAN CELL VOLUME 91.1 fl (80-96); MONO % 13.4 % (3.8-10.2); NEUT % 69.8 % (42.8-82.8); PLATELET COUNT 140 10^3/uL (134-434); RBC 3.56 M/mm3 (4.00-5.60); RDW 15.4 % (11.9-15.9); WHITE BLOOD COUNT 7.1 K/mm3 (4.0-10.0)
[2024-07-13 23:28] LABS: INR 1.2 (0.83-1.09); PROTHROMBIN TIME (PATIENT) 13.5 SEC (9.7-13.0)
[2024-07-13] MEDS: REMDESIVIR 200 MG in SODIUM CHLORIDE 250 ML IVPB ONE (23:28)
[2024-07-13 23:30] LABS: CHLORIDE 98 mmol/L (98-107); POTASSIUM 5.6 mmol/L (3.5-5.1); SODIUM 135 mmol/L (136-145)
[2024-07-13 23:31] LABS: ACTIVATED PTT 27.5 SECONDS (25.2-36.5)
[2024-07-13 23:32] LABS: CALCIUM 8.4 mg/dL (8.5-10.1)
[2024-07-13 23:33] LABS: ANION GAP 14 mmol/L (4-13); CO2 23 mmol/L (21-32); GLUCOSE,RANDOM 112 mg/dL (74-106)
[2024-07-13 23:35] LABS: BLOOD UREA NITROGEN 109.9 mg/dL (7-18)
[2024-07-13 23:36] LABS: SGOT/AST 23 U/L (15-37); SGPT/ALT 20 U/L (13-61)
[2024-07-13 23:37] LABS: BILIRUBIN,TOTAL 0.5 mg/dL (0.2-1); CREATININE 13.4 mg/dL (0.55-1.3)
[2024-07-13 23:38] LABS: TOT PROT 7.7 g/dl (6.4-8.2)
[2024-07-13 23:39] LABS: ALK PHOS 83 U/L (45-117)
[2024-07-14] MEDS ORDERED: ALBUTEROL SO4 2.5/IPRATROPIUM 0.5 INH SOL 3 ML VIAL.NEB. NEB PRN (01:46)
[2024-07-14] MEDS: SODIUM ZIRCONIUM CYCLOSILICATE (LOKELMA) 5 GM PACKET PO ONE (03:54)
[2024-07-14] MEDS ORDERED: UREA TP SCH (06:00)
[2024-07-14] MEDS: HEPARIN NA (PORCINE) 5,000 UNITS/ML 1ML VIAL SQ SCH (06:07)
[2024-07-14] MEDS: hydrALAZINE HCL 50 MG TABLET (FP) PO SCH (06:07)
[2024-07-14] MEDS: DEXAMETHASONE SOD PHOSPHATE 10 MG/1 ML VIAL IVPB SCH (10:58)
[2024-07-14] MEDS: levETIRAcetam 500 MG TABLET (FP) PO SCH (10:59)
[2024-07-14] MEDS: TAMSULOSIN HCL 0.4 MG CAP PO SCH (10:59)
[2024-07-14] MEDS: SEVELAMER CARBONATE 800 MG TAB (FP) PO SCH (10:59)
[2024-07-14] MEDS: amLODIPine BESYLATE 10 MG TABLET (FP) PO SCH (11:00)
[2024-07-14] MEDS: ASPIRIN 81 MG CHEWABLE TABLETS PO SCH (11:00)
[2024-07-14] MEDS: PRAMOXINE HCL 1% (SARNA SENSITIVE) 222 ML BOTTLE TP SCH (11:00)
[2024-07-14] MEDS: FAMOTIDINE 20 MG TABLET PO SCH (11:00)
[2024-07-14] MEDS: CARVEDILOL 25 MG TABLET (FP) PO SCH (11:00)
[2024-07-14] MEDS: PANTOPRAZOLE 20 MG TABLET PO SCH (11:00)
[2024-07-14] MEDS ORDERED: VANCOMYCIN/WATER 1250 MG 1,250 MG/250 ML BAG IVPB ONE (14:00)
[2024-07-14] MEDS: VANCOMYCIN/WATER 1250 MG 1,250 MG/250 ML BAG IVPB ONE (17:39)
[2024-07-14 18:58] LABS: EPI CELLS 1 /uL (0-25.1); HYALINE CASTS 0 /uL (0-3.1); PH,URINE 5.5 (5.0-8.0); URINE APPEARANCE TURBID; URINE BACTERIA 1601 /uL (0-1359); URINE BILIRUBIN NEGATIVE (NEGATIVE); URINE COLOR YELLOW; URINE GLUCOSE (UA) NEGATIVE (NEGATIVE); URINE KETONE NEGATIVE (NEGATIVE); URINE LEUK ESTERASE 3+ (NEGATIVE); URINE NITRITE NEGATIVE (NEGATIVE); URINE PROTEIN 2+ (NEGATIVE); URINE RBC 35 /uL (0-23.9); URINE UROBILINOGEN 0.2 mg/dL (0.2-1.0); URINE WBC 4481 /uL (0-25.8)
[2024-07-14] MEDS ORDERED: SODIUM CHLORIDE 250 ML IV PRN (19:02)
[2024-07-14 19:56] LABS: HEMATOCRIT 31.8 % (35.4-49); HEMOGLOBIN 10.6 GM/dL (11.7-16.9); MCHC 33.2 g/dl (32.0-35.9); MEAN CELL VOLUME 90.2 fl (80-96); MEAN PLT VOLUME 8.2 fl (7.5-11.1); PLATELET COUNT 149 10^3/uL (134-434); RBC 3.52 M/mm3 (4.00-5.60); RDW 15.2 % (11.9-15.9); WHITE BLOOD COUNT 7.6 K/mm3 (4.0-10.0)
[2024-07-14 20:15] LABS: CHLORIDE 98 mmol/L (98-107); SODIUM 136 mmol/L (136-145)
[2024-07-14 20:17] LABS: ALBUMIN 2.9 g/dl (3.4-5.0); ANION GAP 18 mmol/L (4-13); CALCIUM 8.7 mg/dL (8.5-10.1); CO2 19 mmol/L (21-32); MAGNESIUM 2.7 mg/dL (1.8-2.4)
[2024-07-14 20:18] LABS: GLUCOSE,RANDOM 129 mg/dL (74-106)
[2024-07-14 20:20] LABS: SGOT/AST 13 U/L (15-37); SGPT/ALT 19 U/L (13-61)
[2024-07-14 20:22] LABS: BILIRUBIN,TOTAL 0.4 mg/dL (0.2-1); TOT PROT 7.5 g/dl (6.4-8.2)
[2024-07-14 20:23] LABS: ALK PHOS 77 U/L (45-117)
[2024-07-14 20:32] LABS: BLOOD UREA NITROGEN 140.4 mg/dL (7-18); CREATININE 14.3 mg/dL (0.55-1.3)
[2024-07-14 20:50] LABS: PHOSPHOROUS 8.8 mg/dL (2.5-4.9)
[2024-07-14] MEDS: EPOETIN ALFA-EPBX 2,000 UNIT/ML VIAL IVPUSH ONE (21:27)
[2024-07-14] MEDS: MELATONIN 5 MG TABLETS PO SCH (22:00)
[2024-07-14] MEDS: SENNOSIDES 8.6MG TABLET (FP) PO SCH (22:00)
[2024-07-14] MEDS: ATORVASTATIN CA 20 MG TABLET (FP) PO SCH (22:00)
[2024-07-14] MEDS: GABAPENTIN 100 MG CAPSULE PO SCH (22:01)
[2024-07-14] MEDS: oxyCODONE HCL 5 MG TABLET PO PRN (22:32)
[2024-07-15] MEDS: REMDESIVIR 100 MG in SODIUM CHLORIDE 250 ML IVPB SCH (15:25)
[2024-07-15] MEDS: CEFTRIAXONE 1 G/50 ML PREMIX 50 ML IVPB SCH (16:26)
[2024-07-15] MEDS: CEFAZOLIN 1 GM/D5W 1 GM/50 ML BAG IVPB SCH (16:55)
[2024-07-16 11:02] LABS: HEMATOCRIT 33.5 % (35.4-49); MCH 29.8 pg (25.7-33.7); MCHC 32.9 g/dl (32.0-35.9); MEAN CELL VOLUME 90.6 fl (80-96); MEAN PLT VOLUME 8.5 fl (7.5-11.1); PLATELET COUNT 160 10^3/uL (134-434); RDW 14.9 % (11.9-15.9); WHITE BLOOD COUNT 10.8 K/mm3 (4.0-10.0)
[2024-07-16 11:25] LABS: CHLORIDE 96 mmol/L (98-107); POTASSIUM 4.6 mmol/L (3.5-5.1); SODIUM 136 mmol/L (136-145)
[2024-07-16 11:27] LABS: ANION GAP 16 mmol/L (4-13); CALCIUM 9.1 mg/dL (8.5-10.1); CO2 24 mmol/L (21-32); MAGNESIUM 2.3 mg/dL (1.8-2.4)
[2024-07-16 11:28] LABS: GLUCOSE,RANDOM 162 mg/dL (74-106)
[2024-07-16 11:31] LABS: PHOSPHOROUS 7.6 mg/dL (2.5-4.9)
[2024-07-16 11:33] LABS: BLOOD UREA NITROGEN 101.5 mg/dL (7-18); CREATININE 9.7 mg/dL (0.55-1.3)
[2024-07-16] MEDS ORDERED: SODIUM CHLORIDE 250 ML IV PRN (18:31)
[2024-07-16] MEDS: EPOETIN ALFA-EPBX 2,000 UNIT/ML VIAL IVPUSH ONE (20:18)
[2024-07-17] MEDS: CEFAZOLIN 2 GM/D5W 2 GM/50 ML ML IVPB ONE (09:07)
[2024-07-17] MEDS: ACETAMINOPHEN 325 MG TABLET (FP) PO PRN (22:22)
[2024-07-17] MEDS: hydrOXYzine PAMOATE 25 MG CAPSULE (FP) PO PRN (22:48)
[2024-07-18] MEDS: NAFCILLIN - 1 GM in DEXTROSE 5%-WATER - 100 ML IVPB SCH (15:45)
[2024-07-19] MEDS ORDERED: SODIUM CHLORIDE 250 ML IV PRN (09:53)
[2024-07-19 13:52] LABS: HEMATOCRIT 33.7 % (35.4-49); MCH 29.4 pg (25.7-33.7); MCHC 32.6 g/dl (32.0-35.9); MEAN CELL VOLUME 90.2 fl (80-96); MEAN PLT VOLUME 8.2 fl (7.5-11.1); PLATELET COUNT 220 10^3/uL (134-434); RBC 3.73 M/mm3 (4.00-5.60); RDW 15.4 % (11.9-15.9); WHITE BLOOD COUNT 11.6 K/mm3 (4.0-10.0)
[2024-07-19 14:09] LABS: CHLORIDE 93 mmol/L (98-107); POTASSIUM 4.6 mmol/L (3.5-5.1); SODIUM 136 mmol/L (136-145)
[2024-07-19 14:11] LABS: CALCIUM 8.8 mg/dL (8.5-10.1)
[2024-07-19 14:12] LABS: ANION GAP 20 mmol/L (4-13); CO2 23 mmol/L (21-32); MAGNESIUM 2.2 mg/dL (1.8-2.4)
[2024-07-19 14:15] LABS: SGOT/AST 5 U/L (15-37); SGPT/ALT < 6 U/L (13-61)
[2024-07-19 14:17] LABS: BILIRUBIN,TOTAL 0.4 mg/dL (0.2-1); TOT PROT 6.6 g/dl (6.4-8.2)
[2024-07-19 14:18] LABS: ALK PHOS 71 U/L (45-117)
[2024-07-19 14:26] LABS: BLOOD UREA NITROGEN 132.6 mg/dL (7-18); CREATININE 9.8 mg/dL (0.55-1.3); GLUCOSE,RANDOM 268 mg/dL (74-106); PHOSPHOROUS 6.6 mg/dL (2.5-4.9)
[2024-07-19 15:03] LABS: ALBUMIN 2.6 g/dl (3.4-5.0)
[2024-07-19 17:21] LABS: ANISOCYTOSIS 1+; MACROCYTOSIS 0; OVALOCYTE 1+
[2024-07-19] MEDS: CEFAZOLIN 2 GM/D5W 2 GM/50 ML ML IVPB SCH (17:35)
[2024-07-20 15:33] LABS: HEMATOCRIT 34.9 % (35.4-49); HEMOGLOBIN 11.2 GM/dL (11.7-16.9); MCH 29.3 pg (25.7-33.7); MEAN CELL VOLUME 91.5 fl (80-96); MEAN PLT VOLUME 7.8 fl (7.5-11.1); PLATELET COUNT 238 10^3/uL (134-434); RBC 3.82 M/mm3 (4.00-5.60); RDW 15.4 % (11.9-15.9); WHITE BLOOD COUNT 12.1 K/mm3 (4.0-10.0)
[2024-07-20] MEDS ORDERED: SODIUM CHLORIDE 250 ML IV PRN (15:36)
[2024-07-20 15:56] LABS: POTASSIUM 3.9 mmol/L (3.5-5.1)
[2024-07-20 15:57] LABS: ALBUMIN 2.4 g/dl (3.4-5.0); BLOOD UREA NITROGEN 78.4 mg/dL (7-18); CALCIUM 8.7 mg/dL (8.5-10.1)
[2024-07-20 16:06] LABS: ANISOCYTOSIS 2+; MACROCYTOSIS 0; OVALOCYTE 1+; TEAR DROP CELLS 1+
[2024-07-20 16:09] LABS: BILIRUBIN,TOTAL 0.4 mg/dL (0.2-1); PHOSPHOROUS 5.8 mg/dL (2.5-4.9); TOT PROT 6.4 g/dl (6.4-8.2)
[2024-07-21 10:43] LABS: HEMATOCRIT 31.8 % (35.4-49); HEMOGLOBIN 10.1 GM/dL (11.7-16.9); MCH 29.2 pg (25.7-33.7); MCHC 31.9 g/dl (32.0-35.9); MEAN CELL VOLUME 91.4 fl (80-96); MEAN PLT VOLUME 7.7 fl (7.5-11.1); PLATELET COUNT 217 10^3/uL (134-434); RBC 3.47 M/mm3 (4.00-5.60); RDW 15.4 % (11.9-15.9); WHITE BLOOD COUNT 12.9 K/mm3 (4.0-10.0)
[2024-07-21 11:13] LABS: CHLORIDE 94 mmol/L (98-107); POTASSIUM 4.1 mmol/L (3.5-5.1); SODIUM 135 mmol/L (136-145)
[2024-07-21 11:15] LABS: ALBUMIN 2.5 g/dl (3.4-5.0); ANION GAP 16 mmol/L (4-13); BLOOD UREA NITROGEN 100.4 mg/dL (7-18); CALCIUM 8.7 mg/dL (8.5-10.1); CO2 25 mmol/L (21-32); GLUCOSE,RANDOM 179 mg/dL (74-106)
[2024-07-21 11:18] LABS: SGOT/AST 7 U/L (15-37); SGPT/ALT < 6 U/L (13-61)
[2024-07-21 11:20] LABS: BILIRUBIN,TOTAL 0.4 mg/dL (0.2-1); TOT PROT 6.2 g/dl (6.4-8.2)
[2024-07-21 11:21] LABS: ALK PHOS 67 U/L (45-117)
[2024-07-21 11:25] LABS: CREATININE 8.3 mg/dL (0.55-1.3)
[2024-07-21] MEDS ORDERED: ONDANSETRON 4 MG TABLET PO ONE (19:43)
[2024-07-21] MEDS: ONDANSETRON 8 MG TABLET (FP) PO PRN (19:53)
[2024-07-22 10:22] LABS: CHLORIDE 98 mmol/L (98-107); POTASSIUM 4.1 mmol/L (3.5-5.1); SODIUM 138 mmol/L (136-145)
[2024-07-22 10:32] LABS: SGOT/AST 11 U/L (15-37); SGPT/ALT < 6 U/L (13-61)
[2024-07-22 10:33] LABS: ALBUMIN 2.5 g/dl (3.4-5.0); ANION GAP 12 mmol/L (4-13); CO2 29 mmol/L (21-32); CREATININE 6.2 mg/dL (0.55-1.3); MAGNESIUM 2.1 mg/dL (1.8-2.4)
[2024-07-22 10:34] LABS: BILIRUBIN,TOTAL 0.5 mg/dL (0.2-1); GLUCOSE,RANDOM 86 mg/dL (74-106); TOT PROT 6.6 g/dl (6.4-8.2)
[2024-07-22 10:36] LABS: PHOSPHOROUS 5.9 mg/dL (2.5-4.9)
[2024-07-22 10:37] LABS: BLOOD UREA NITROGEN 60.4 mg/dL (7-18)
[2024-07-22 10:41] LABS: ALK PHOS 69 U/L (45-117)
[2024-07-22 11:13] LABS: HEMATOCRIT 32.2 % (35.4-49); HEMOGLOBIN 10.3 GM/dL (11.7-16.9); MCH 29.4 pg (25.7-33.7); MEAN CELL VOLUME 91.9 fl (80-96); MEAN PLT VOLUME 8.1 fl (7.5-11.1); PLATELET COUNT 204 10^3/uL (134-434); RDW 15.7 % (11.9-15.9); WHITE BLOOD COUNT 14.3 K/mm3 (4.0-10.0)
[2024-07-22 12:56] LABS: ANISOCYTOSIS 1+; MACROCYTOSIS 1+
[2024-07-22] MEDS ORDERED: SODIUM CHLORIDE 250 ML IV PRN (17:51)
[2024-07-22 18:07] LABS: HEMATOCRIT 31.5 % (35.4-49); HEMOGLOBIN 10.1 GM/dL (11.7-16.9); MCH 29.7 pg (25.7-33.7); MCHC 32.1 g/dl (32.0-35.9); MEAN CELL VOLUME 92.6 fl (80-96); MEAN PLT VOLUME 7.4 fl (7.5-11.1); PLATELET COUNT 188 10^3/uL (134-434); RDW 15.2 % (11.9-15.9); WHITE BLOOD COUNT 12.9 K/mm3 (4.0-10.0)
[2024-07-22 18:56] LABS: ANISOCYTOSIS 1+; MACROCYTOSIS 1+; TARGET CELLS 1+
[2024-07-22 21:59] VITALS: BP 155/76; PULSE 77; RESP 16; TEMP 97.5
== END 2024-07-22 21:45 | disposition short-term general hospital (02) | DRG 137 ==
LOC: JER 20:21 → JERBED 07-14 00:04 → J4S 07-14 02:28
PROVIDERS: ADMIT Internal Medicine; ATTEND Internal Medicine
PROC: XW033E5 Introduction of Remdesivir Anti-infective into Peripheral Vein, Percutaneous Approach, New Technology Group 5 (ICD-10-PCS; principal; 2024-07-13)
PROC: 5A1D70Z Performance of Urinary Filtration, Intermittent, Less than 6 Hours Per Day (ICD-10-PCS; 2024-07-21)
DX: U07.1 COVID-19 (principal); E87.20 Acidosis, unspecified; I13.2 Hypertensive heart and chronic kidney disease with heart failure and with stage 5 chronic kidney disease, or end stage renal disease; J96.01 Acute respiratory failure with hypoxia; I69.351 Hemiplegia and hemiparesis following cerebral infarction affecting right dominant side; I24.89 Other forms of acute ischemic heart disease; N18.6 End stage renal disease; R78.81 Bacteremia; I50.32 Chronic diastolic (congestive) heart failure; R56.9 Unspecified convulsions; B95.61 Methicillin susceptible Staphylococcus aureus infection as the cause of diseases classified elsewhere; E78.5 Hyperlipidemia, unspecified; D63.1 Anemia in chronic kidney disease; Z99.2 Dependence on renal dialysis; N39.0 Urinary tract infection, site not specified; B96.20 Unspecified Escherichia coli [E. coli] as the cause of diseases classified elsewhere; E11.22 Type 2 diabetes mellitus with diabetic chronic kidney disease; E87.5 Hyperkalemia; N40.0 Benign prostatic hyperplasia without lower urinary tract symptoms
CPT/HCPCS: 0241U-QW; 36415; 71045-TC-FY; 80048; 80053; 81003; 82803; 82962; 83605; 83735; 84100; 84484; 85025; 85027; 85610; 85730; 86803; 86850; 86900; 86901; 87040; 87086; 87186; 87340; 87522; 87635; 93005; 93010; 93306-TC; 99285-25; J0248; J1100; J1644; Q5106

== ENCOUNTER 2025-04-11 10:07 | Inpatient (IN) | payer OTHER ==
[2025-04-11 11:03] LABS: ABSOLUTE IMMATURE GRANULOCYTES 0.03 x10^3/uL (0.0-0.031); BASOPHILS # 0.04 x10^3/uL (0.01-0.08); BG HCT 32.0 % (35.4-49); EOSINOPHIL % 5.8 % (0.8-7.0); EOSINOPHILS # 0.48 x10^3/uL (0.04-0.54); MCHC 30.7 g/dl (32.3-36.5); MEAN CELL VOLUME 103.9 fl (79.0-92.2); MEAN PLT VOLUME 9.7 fl (9.4-12.4); MONOCYTE # 0.66 x10^3/uL (0.30-0.82); MONOCYTE % 8.0 % (5.3-12.2); RDW 15.2 % (12.2-16.4); VENOUS BASE EXCESS -4.7 mmol/L (-2-2); VENOUS O2 SATURATION 68.7 % (70-80); VENOUS PCO2 51.8 mmHg (38-52); VENOUS PH 7.257 (7.310-7.410)
[2025-04-11 11:23] LABS: GLUCOSE,RANDOM 88 mg/dL (74-106); TOT PROT 7.6 g/dl (6.4-8.2)
[2025-04-11 11:24] LABS: CO2 24 mmol/L (21-32)
[2025-04-11 11:26] LABS: ALK PHOS 76 U/L (40-150)
[2025-04-11 11:29] LABS: CREATININE 8.73 mg/dL (0.55-1.3); SGOT/AST 20 U/L (5-34); SGPT/ALT 15 U/L (0-55)
[2025-04-11] MEDS ORDERED: FUROSEMIDE 40 MG/4 ML INJECTABLE VIAL ONE ×2 (11:33→13:02)
[2025-04-11 11:37] LABS: N-TERMINAL BNP 9593.4 pg/mL (0-299.9)
[2025-04-11] MEDS: FUROSEMIDE 40 MG/4 ML INJECTABLE VIAL IVPUSH ONE ×2 (11:46→13:05)
[2025-04-11] MEDS ORDERED: ALBUTEROL SULFATE 0.021% (0.63 MG/3 ML) VIAL.NEB NEB ONE (12:37)
[2025-04-11] MEDS ORDERED: DEXTROSE 50%-WATER 25 GM/50 ML DISP.SYRIN ONE (13:02)
[2025-04-11] MEDS ORDERED: INSULIN REGULAR HUMAN 100 UNITS/ML *VIAL ONE (13:03)
[2025-04-11] MEDS: DEXTROSE 50%-WATER - 25 GM/50 ML VIAL IVPUSH ONE (13:05)
[2025-04-11] MEDS ORDERED: ALBUTEROL SO4 0.083% IH SOL 2.5 MG/3 ML VIAL.NEB. NEB ONE (13:05)
[2025-04-11] MEDS: INSULIN REGULAR HUMAN 100 UNITS/ML *VIAL IVPUSH ONE (13:05)
[2025-04-11] MEDS: ALBUTEROL SO4 0.083% IH SOL 2.5 MG/3 ML VIAL.NEB. NEB ONE (13:44)
[2025-04-11] MEDS ORDERED: SODIUM CHLORIDE 250 ML IV PRN (16:41)
[2025-04-11] MEDS ORDERED: MELATONIN 5 MG TABLETS PO PRN (16:50)
[2025-04-11] MEDS ORDERED: PATIENT'S OWN MEDICATION (NON-FORMULARY) (Oxycodone Hcl [Oxycodone Hcl] 5 MG Capsule) PO PRN (16:50)
[2025-04-11 20:40] LABS: HCV DIAGNOSTIC IN-HOUSE W/RFLX REACTIVE (NONREACTIVE); HEPATITIS B SURF AG NON-MATERN NON-REACTIVE (NONREACTIVE)
[2025-04-11] MEDS: ATORVASTATIN CA 20 MG TABLET (FP) PO SCH (21:32)
[2025-04-11] MEDS: levETIRAcetam 500 MG TABLET (FP) PO SCH (21:32)
[2025-04-11] MEDS: DOCUSATE SODIUM 100 MG CAPSULE (FP) PO SCH (21:33)
[2025-04-11] MEDS: hydrALAZINE HCL 50 MG TABLET (FP) PO SCH (21:34)
[2025-04-11] MEDS: CARVEDILOL 25 MG TABLET (FP) PO SCH (21:34)
[2025-04-11] MEDS: SENNOSIDES 8.6MG TABLET (FP) PO SCH (21:35)
[2025-04-11] MEDS: HEPARIN NA (PORCINE) 5,000 UNITS/ML 1ML VIAL SQ SCH (21:36)
[2025-04-11] MEDS: ACETAMINOPHEN 325 MG TABLET (FP) PO PRN (23:06)
[2025-04-12] MEDS: TORSEMIDE 100 MG TABLET PO SCH (10:15)
[2025-04-12] MEDS: PANTOPRAZOLE 20 MG TABLET PO SCH (10:17)
[2025-04-12] MEDS: TAMSULOSIN HCL 0.4 MG CAP PO SCH (10:17)
[2025-04-12] MEDS: GABAPENTIN 100 MG CAPSULE PO SCH (10:18)
[2025-04-13] MEDS ORDERED: SODIUM CHLORIDE 250 ML IV PRN (10:16)
[2025-04-13] MEDS: EPOETIN ALFA-EPBX 4,000 UNIT/ML VIAL SQ ONE (11:22)
[2025-04-13 15:13] LABS: ABSOLUTE IMMATURE GRANULOCYTES 0.04 x10^3/uL (0.0-0.031); BASOPHILS # 0.03 x10^3/uL (0.01-0.08); EOSINOPHIL % 5.9 % (0.8-7.0); EOSINOPHILS # 0.44 x10^3/uL (0.04-0.54); MCHC 30.7 g/dl (32.3-36.5); MEAN CELL VOLUME 101.9 fl (79.0-92.2); MEAN PLT VOLUME 9.9 fl (9.4-12.4); MONOCYTE # 0.80 x10^3/uL (0.30-0.82); MONOCYTE % 10.6 % (5.3-12.2); RDW 14.6 % (12.2-16.4)
[2025-04-14 01:42] VITALS: RESP 16
[2025-04-14 14:05] VITALS: BMI 32.1
[2025-04-14 14:53] VITALS: BP 134/53; PULSE 74; TEMP 97.6
== END 2025-04-14 18:35 | DRG 194 ==
LOC: JER 10:07 → JERBED 13:13 → J4S 17:13
PROVIDERS: ADMIT Internal Medicine; ATTEND Internal Medicine
PROC: 5A1D70Z Performance of Urinary Filtration, Intermittent, Less than 6 Hours Per Day (ICD-10-PCS; principal; 2025-04-13)
DX: J81.0 Acute pulmonary edema (principal); I13.2 Hypertensive heart and chronic kidney disease with heart failure and with stage 5 chronic kidney disease, or end stage renal disease; E11.22 Type 2 diabetes mellitus with diabetic chronic kidney disease; N18.6 End stage renal disease; E87.5 Hyperkalemia; I69.351 Hemiplegia and hemiparesis following cerebral infarction affecting right dominant side; R56.9 Unspecified convulsions; E78.5 Hyperlipidemia, unspecified; F31.9 Bipolar disorder, unspecified; I25.10 Atherosclerotic heart disease of native coronary artery without angina pectoris; N40.0 Benign prostatic hyperplasia without lower urinary tract symptoms; R06.02 Shortness of breath; R09.02 Hypoxemia; Z99.2 Dependence on renal dialysis; I50.32 Chronic diastolic (congestive) heart failure
CPT/HCPCS: 36415; 71045-TC-FY; 80048; 80053; 82803; 82962; 83880; 84484; 85025; 86803; 87040; 87340; 87522; 93005; 93010; 94150; 94660; 99285-25; Q5106